=== PATIENT | male | born 1945 | race Caucasian/White ===

== ENCOUNTER 2020-07-18 15:55 | Emergency (ER) | payer BC, MEDICARE, OTHER ==
--- NOTE | 2020-07-18 17:31 | EDM.PDOC ---
ED HPI GENERAL MEDICAL PROBLEM - General Chief Complaint: Cardiovascular Problem Stated Complaint: HIGH BLOOD PRESSURE Time Seen by Provider: 07/18/20 17:13 Source of Information: Reports: Patient, RN Notes Reviewed History Limitations: Reports: No Limitations - History of Present Illness INITIAL COMMENTS - FREE TEXT/NARRATIVE: 75-year-old gentleman presents emergency department a complaint of elevated blood pressure, he has been dealing with his blood pressures primary care since March of this year he is on one blood pressure medication which he cannot recall the name of as well as Coreg he recently increased his Coreg dose to 25 mg p.o. twice daily 2 days ago. He does admit that he has not been careful on his salt intake had a can of soup prior to presentation the ED and is noticed some blood pressure at home was around 212., No symptoms at this time - Related Data Allergies Allergy/AdvReac Type Severity Reaction Status Date / Time Iodinated Contrast Media Allergy Other Verified 07/18/20 17:09 Home Meds: Home Meds Aspirin [Children's Aspirin] 162 mg PO DAILY 07/01/14 [History] atorvaSTATin [Lipitor] 5 mg PO BEDTIME 06/16/18 [History] carvediloL [Coreg] 12.5 mg PO BID 06/16/18 [History] Hammond-3 Fatty Acids/Fish Oil [Fish Oil 1,000 mg Capsule] 1 tab PO BID 07/18/20 [History] Omeprazole 20 mg PO BEDTIME 07/18/20 [History] Sildenafil [Viagra] 50 mg PO ASDIRECTED 07/18/20 [History] Past Medical History HEENT History: Reports: Impaired Vision Cardiovascular History: Reports: High Cholesterol, Hypertension Musculoskeletal History: Reports: Arthritis Endocrine/Metabolic History: Reports: Obesity/BMI 30+ - Infectious Disease History Infectious Disease History: Reports: Chicken Pox, Measles, Mumps - Past Surgical History Head Surgeries/Procedures: Reports: None HEENT Surgical History: Reports: None Cardiovascular Surgical History: Reports: Coronary Artery Bypass, Coronary Artery Stent Endocrine Surgical History: Reports: None Musculoskeletal Surgical History: Reports: None Dermatological Surgical History: Reports: None Social & Family History - Tobacco Use Tobacco Use Status *Q: Former Tobacco User Used Tobacco, but Quit: Yes Month/Year Tobacco Last Used: 2000 - Caffeine Use Caffeine Use: Reports: Coffee - Alcohol Use Days Per Week of Alcohol Use: 5 Number of Drinks Per Day: 5 Total Drinks Per Week: 25 - Recreational Drug Use Recreational Drug Use: No ED ROS GENERAL - Review of Systems Review Of Systems: See Below Constitutional: Reports: No Symptoms Respiratory: Reports: No Symptoms Cardiovascular: Reports: Blood Pressure Problem ED EXAM, GENERAL - Physical Exam Exam: See Below Exam Limited By: No Limitations General Appearance: Alert, WD/WN, No Apparent Distress Respiratory/Chest: No Respiratory Distress, Lungs Clear, Normal Breath Sounds, No Accessory Muscle Use, Chest Non-Tender Cardiovascular: Regular Rate, Rhythm, No Murmur Course - Vital Signs Last Recorded V/S: Last Vital Signs Temp 96.5 F L 07/18/20 16:58 Pulse 64 07/18/20 17:03 Resp 10 L 07/18/20 17:03 BP 172/78 H 07/18/20 17:03 Pulse Ox 96 07/18/20 17:03 Departure - Departure Time of Disposition: 17:30 Disposition: Home, Self-Care 01 Condition: Fair Clinical Impression: Essential hypertension Instructions: DASH Eating Plan Referrals: Carlyn Alonso PA [Primary Care Provider] - Additional Instructions: Recommend doing a blood pressure journal and take your blood pressure once a day at various times throughout the day, recommend monitoring your salt intake and try and cut out extra salt please follow-up with your primary care in the next 3 to 5 days for reevaluation this could be done over the phone, call or return to the emergency department worsening of symptoms Sepsis Event Note (ED) - Evaluation Sepsis Screening Result: No Definite Risk - Focused Exam Vital Signs: Vital Signs Temp Pulse Resp BP Pulse Ox 07/18/20 17:03 64 10 L 172/78 H 96 07/18/20 16:58 96.5 F L 64 16 202/88 H 97 07/18/20 16:55 96.5 F L 64 16 202/88 H 97 - Assessment/Plan Plan: Assessment Acuity = acute Site and laterality = suboptimal essential hypertension Etiology = probably related to salt intake Manifestations = none Location of injury = Home Lab values = none Plan Counseled him on salt intake and blood pressure he is going to continue with his blood pressure medications he will contact his primary care he is going to do a blood pressure journal with blood pressure readings once a day and his salt intake journal as well This note was dictated using [employer] voice recognition software please call with any questions on syntax or grammar.
== END 2020-07-18 17:37 | disposition home or self-care (01) ==
LOC: JP.ED 15:55
DX: I10 Essential (primary) hypertension (principal); E78.00 Pure hypercholesterolemia, unspecified; M19.90 Unspecified osteoarthritis, unspecified site; E66.9 Obesity, unspecified; Z68.34 Body mass index [BMI] 34.0-34.9, adult; Z91.041 Radiographic dye allergy status; Z79.82 Long term (current) use of aspirin; Z79.899 Other long term (current) drug therapy; Z87.891 Personal history of nicotine dependence
CPT/HCPCS: 99283

== ENCOUNTER 2022-09-19 01:49 | Emergency (ER) | payer OTHER, MEDICARE ==
[2022-09-19 03:26] LABS: ESTIMATED GFR 57 mL/min (>60); TROPONIN I HIGH SENSITIVITY 12.5 pg/mL (<=60.3)
== END 2022-09-19 03:46 | disposition home or self-care (01) ==
LOC: JP.ED 01:49
DX: R42 Dizziness and giddiness (principal); I10 Essential (primary) hypertension; E87.1 Hypo-osmolality and hyponatremia; E78.00 Pure hypercholesterolemia, unspecified; M19.90 Unspecified osteoarthritis, unspecified site; E66.9 Obesity, unspecified; Z68.30 Body mass index [BMI] 30.0-30.9, adult; Z79.02 Long term (current) use of antithrombotics/antiplatelets; Z91.041 Radiographic dye allergy status; Z79.899 Other long term (current) drug therapy
CPT/HCPCS: 36415; 80053; 84484; 85025; 99284

== ENCOUNTER 2023-03-12 20:12 | Emergency (ER) | payer OTHER, MEDICARE ==
[2023-03-12] MEDS ORDERED: Bacitracin Oint 1 GM U/D Packet TOP ONE (21:22)
[2023-03-12] MEDS ORDERED: Lidocaine 1% with EPINEPHrine 1:100,000 50 ML MDV SUBCUT ONE (21:26)
[2023-03-12] MEDS ORDERED: Diphtheria,Pertussis(Acell),Tetanus Vaccine 0.5 ML Syringe IM ONE (21:27)
[2023-03-12 22:57] LABS: BASOPHILS ABSOLUTE AUTO 0.03 K/uL (0.00-0.10); BASOPHILS PERCENT AUTO 0.5 % (0.1-1.3); EOSINOPHILS ABSOLUTE AUTO 0.09 K/uL (0.00-0.40); EOSINOPHILS PERCENT AUTO 1.4 % (0.0-5.4); HEMATOCRIT 33.5 % (38.4-49.7); HEMOGLOBIN 12.2 g/dL (12.9-16.9); IMMATURE GRAN ABSOLUTE AUTO 0.04 K/uL (0.00-0.23); IMMATURE GRAN PERCENT AUTO 0.6 % (0.0-0.7); MEAN CORPUSCULAR HGB CONC 36.4 g/dL (31.6-35.5); MONOCYTES ABSOLUTE AUTO 0.84 K/uL (0.20-0.90); MONOCYTES PERCENT AUTO 12.6 % (3.3-12.6); NEUTROPHILS ABSOLUTE AUTO 4.65 K/uL (1.0-7.6); NEUTROPHILS PERCENT AUTO 69.9 % (40.0-78.1); PLATELET COUNT,PLT 122 K/uL (130-375); RED BLOOD CELL COUNT 3.49 M/uL (4.14-5.76); WHITE BLOOD CELL COUNT,WBC 6.7 K/uL (3.2-11.0)
[2023-03-12 23:16] LABS: CALCIUM 8.7 mg/dL (8.5-10.1); CREATININE 1.6 mg/dL (0.8-1.3); EST CRCL DRUG DOSING (CG) 38.59 mL/min; POTASSIUM,K 3.6 mmol/L (3.6-5.2)
[2023-03-12 23:17] LABS: ANION GAP 16.6 mmol/L (5.0-14.0)
[2023-03-12 23:20] LABS: PROTHROMBIN TIME 10.1 sec (9.2-10.6)
[2023-03-13] MEDS ORDERED: Bacitracin Oint 28.35 GM Tube TOP ONE (00:34)
[2023-03-13] MEDS ORDERED: ceFAZolin 2 GM in Premix Bag 1 BAG IV ONE (00:48)
[2023-03-13] MEDS ORDERED: Sodium Chloride 0.9% 10 ML Syringe FLUSH PRN (00:55)
== END 2023-03-13 02:03 | disposition home or self-care (01) ==
LOC: JP.ED 20:12
DX: S62.114 Nondisplaced fracture of triquetrum [cuneiform] bone, right wrist (principal); S51.811A Laceration without foreign body of right forearm, initial encounter; E78.00 Pure hypercholesterolemia, unspecified; I10 Essential (primary) hypertension; E66.9 Obesity, unspecified; Z91.041 Radiographic dye allergy status; Z79.01 Long term (current) use of anticoagulants; Z68.36 Body mass index [BMI] 36.0-36.9, adult; Z95.1 Presence of aortocoronary bypass graft; Z79.899 Other long term (current) drug therapy; W01.0XXA Fall on same level from slipping, tripping and stumbling without subsequent striking against object, initial encounter
CPT/HCPCS: 29125; 36415; 73090; 73110; 80048; 85025; 85610; 90471; 90715; 96365; 99283; A9270; J0690

== ENCOUNTER 2023-08-05 11:27 | Emergency (ER) | payer MEDICARE ==
[2023-08-05] MEDS ORDERED: Sodium Chloride 0.9% 10 ML Syringe FLUSH PRN (11:34)
[2023-08-05 11:47] LABS: BASOPHILS ABSOLUTE AUTO 0.05 K/uL (0.00-0.10); BASOPHILS PERCENT AUTO 1.1 % (0.1-1.3); EOSINOPHILS ABSOLUTE AUTO 0.14 K/uL (0.00-0.40); EOSINOPHILS PERCENT AUTO 3.2 % (0.0-5.4); HEMATOCRIT 28.8 % (38.4-49.7); HEMOGLOBIN 10.3 g/dL (12.9-16.9); IMMATURE GRAN PERCENT AUTO 0.5 % (0.0-0.7); LYMPHOCYTES PERCENT AUTO 27.1 % (11.4-47.7); MEAN CORPUSCULAR HEMOGLOBIN 32.5 pg (31.6-35.5); MEAN CORPUSCULAR HGB CONC 35.8 g/dL (31.6-35.5); MEAN CORPUSCULAR VOLUME 90.9 fL (81.4-99.0); MONOCYTES ABSOLUTE AUTO 0.46 K/uL (0.20-0.90); MONOCYTES PERCENT AUTO 10.4 % (3.3-12.6); NEUTROPHILS ABSOLUTE AUTO 2.56 K/uL (1.0-7.6); NEUTROPHILS PERCENT AUTO 57.7 % (40.0-78.1); PLATELET COUNT,PLT 167 K/uL (130-375); RED BLOOD CELL COUNT 3.17 M/uL (4.14-5.76); WHITE BLOOD CELL COUNT,WBC 4.4 K/uL (3.2-11.0)
[2023-08-05 11:49] LABS: IMMATURE GRAN ABSOLUTE AUTO 0.02 K/uL (0.00-0.23)
[2023-08-05 12:01] LABS: CALCIUM 8.7 mg/dL (8.5-10.1); CREATININE 1.6 mg/dL (0.8-1.3); POTASSIUM,K 4.1 mmol/L (3.6-5.2)
[2023-08-05 12:09] LABS: ANION GAP 15.1 mmol/L (5.0-14.0)
[2023-08-05 13:19] LABS: APPEARANCE,URINE SLIGHTLY CLOUDY (CLEAR); BILIRUBIN,URINE SMALL (NEGATIVE); COLOR,URINE YELLOW (YELLOW); GLUCOSE,URINE NEGATIVE (NEGATIVE); KETONES,URINE TRACE mg/dL (NEGATIVE); LEUKOCYTE ESTERASE,URINE SMALL (NEGATIVE); NITRITE,URINE NEGATIVE (NEGATIVE); OCCULT BLOOD,URINE NEGATIVE (NEGATIVE); PROTEIN,URINE NEGATIVE (NEGATIVE)
[2023-08-05 13:25] LABS: AMORPHOUS SEDIMENT,URINE FEW; BACTERIA,URINE FEW; EPITHELIAL CELLS,URINE RARE; MUCUS,URINE MODERATE; RBC,URINE NOT SEEN (0-5); WBC,URINE 0-5 (0-5)
== END 2023-08-05 15:07 | disposition home or self-care (01) ==
LOC: JP.ED 11:27
DX: E87.1 Hypo-osmolality and hyponatremia (principal); I10 Essential (primary) hypertension; E78.00 Pure hypercholesterolemia, unspecified; Z79.01 Long term (current) use of anticoagulants; Z91.041 Radiographic dye allergy status; Z79.82 Long term (current) use of aspirin; Z79.899 Other long term (current) drug therapy; Z95.5 Presence of coronary angioplasty implant and graft
CPT/HCPCS: 36415; 70450; 73610; 73630; 80048; 81001; 84484; 85025; 93005; 99285; J3490

== ENCOUNTER 2023-11-20 10:31 | Emergency (ER) | payer OTHER, MEDICARE ==
[2023-11-20 11:35] LABS: BASOPHILS ABSOLUTE AUTO 0.04 K/uL (0.00-0.10); BASOPHILS PERCENT AUTO 0.2 % (0.1-1.3); EOSINOPHILS ABSOLUTE AUTO 0.05 K/uL (0.00-0.40); EOSINOPHILS PERCENT AUTO 0.3 % (0.0-5.4); HEMATOCRIT 26.1 % (38.4-49.7); HEMOGLOBIN 9.1 g/dL (12.9-16.9); IMMATURE GRAN ABSOLUTE AUTO 0.18 K/uL (0.00-0.23); IMMATURE GRAN PERCENT AUTO 0.9 % (0.0-0.7); LYMPHOCYTES ABSOLUTE AUTO 1.26 K/uL (0.8-3.3); LYMPHOCYTES PERCENT AUTO 6.4 % (11.4-47.7); MEAN CORPUSCULAR HGB CONC 34.9 g/dL (31.6-35.5); MEAN CORPUSCULAR VOLUME 88.8 fL (81.4-99.0); MONOCYTES ABSOLUTE AUTO 0.73 K/uL (0.20-0.90); MONOCYTES PERCENT AUTO 3.7 % (3.3-12.6); NEUTROPHILS ABSOLUTE AUTO 17.54 K/uL (1.0-7.6); NEUTROPHILS PERCENT AUTO 88.5 % (40.0-78.1); PLATELET COUNT,PLT 172 K/uL (130-375); RED BLOOD CELL COUNT 2.94 M/uL (4.14-5.76); WHITE BLOOD CELL COUNT,WBC 19.8 K/uL (3.2-11.0)
[2023-11-20] MEDS: Cefepime 2 GM in Sodium Chloride 0.9% 50 ML IV ONE (11:50)
[2023-11-20] MEDS: Acetaminophen 500 MG Tab PO ONE (11:51)
[2023-11-20 11:54] LABS: LACTIC ACID 1.7 mmol/L (0.4-2.0)
[2023-11-20 11:56] LABS: INR 1.1; PROTHROMBIN TIME 11.3 sec (9.2-10.6); PTT,PARTIAL THROMBOPLSTIN TIME 31.7 sec (21.8-27.3)
[2023-11-20 11:59] LABS: A/G RATIO 0.7 (1.2-2.2); ALANINE AMINOTRANSFERASE,ALT 9 U/L (12-78); ALBUMIN 2.9 g/dL (3.4-5.0); ALKALINE PHOSPHATASE 68 U/L (46-116); ASPARTATE AMNIOTRANSFERASE,AST 27 U/L (15-37); BILIRUBIN TOTAL 1.1 mg/dL (0.2-1.0); BLOOD UREA NITROGEN,BUN 13 mg/dL (7-18); C-REACTIVE PROTEIN 10.04 mg/dL (<0.50); CARBON DIOXIDE,CO2 23 mmol/L (21-32); CHLORIDE,CL 93 mmol/L (100-108); CREATININE 1.6 mg/dL (0.8-1.3); EST CRCL DRUG DOSING (CG) 35.44 mL/min; ESTIMATED GFR 44 mL/min (>60); GLUCOSE RANDOM 114 mg/dL (74-106); POTASSIUM,K 3.9 mmol/L (3.6-5.2); PROTEIN TOTAL,TP 7.1 g/dL (6.4-8.2); SODIUM,NA 128 mmol/L (140-148)
[2023-11-20 12:01] LABS: ANION GAP 15.9 mmol/L (5.0-14.0)
[2023-11-20 12:04] LABS: TROPONIN I HIGH SENSITIVITY 4235.8 pg/mL (<=60.3)
[2023-11-20] MEDS: diphenhydrAMINE 50 MG/ML SDV IVPUSH ONE (12:19)
[2023-11-20] MEDS ORDERED: Aspirin 81 MG Tab.Chew PO ONE (12:35)
[2023-11-20] MEDS: Iopamidol 755 Mg/ML 100 ML Bottle IV SCH (13:05)
[2023-11-20] MEDS: Sodium Chloride 0.9% 100 ML IV SCH (13:06)
[2023-11-20] MEDS: Sodium Chloride 0.9% 10 ML Syringe FLUSH PRN (13:06)
[2023-11-20] MEDS: Heparin Sodium 5,000 Units/ML Vial IVPUSH ONE (13:12)
[2023-11-20] MEDS: Aspirin 81 MG Tab.Chew PO ONE (13:12)
[2023-11-20] MEDS ORDERED: Sodium Chloride 0.9% 500 ML IV ONE (13:13)
[2023-11-20] MEDS: Heparin Sodium/D5W 25,000 UNITS/500 ML BAG IV SCH (13:15)
[2023-11-20] MEDS: Sodium Chloride 0.9% 1,000 ML IV SCH (13:29)
== END 2023-11-20 13:56 | disposition other institution (70) ==
LOC: JP.ED 10:31
DX: A41.9 Sepsis, unspecified organism (principal); R65.20 Severe sepsis without septic shock; I21.4 Non-ST elevation (NSTEMI) myocardial infarction; I25.10 Atherosclerotic heart disease of native coronary artery without angina pectoris; E78.00 Pure hypercholesterolemia, unspecified; K21.9 Gastro-esophageal reflux disease without esophagitis; N18.9 Chronic kidney disease, unspecified; I12.9 Hypertensive chronic kidney disease with stage 1 through stage 4 chronic kidney disease, or unspecified chronic kidney disease; E66.9 Obesity, unspecified; Z95.1 Presence of aortocoronary bypass graft; Z88.1 Allergy status to other antibiotic agents; Z91.041 Radiographic dye allergy status; Z88.8 Allergy status to other drugs, medicaments and biological substances; Z95.5 Presence of coronary angioplasty implant and graft; Z79.01 Long term (current) use of anticoagulants; Z79.899 Other long term (current) drug therapy; Z89.412 Acquired absence of left great toe; Z68.27 Body mass index [BMI] 27.0-27.9, adult
CPT/HCPCS: 36415; 71045; 75635; 80053; 83605; 83880; 84145; 84484; 85025; 85610; 85730; 86140; 87040; 93005; 96365; 96367; 96375; 99285; A9270; J0692; J1200; J1644; J3370; J3490; J7030; J7050; Q9967